=== PATIENT | female | born 1955 | race Caucasian/White ===

== ENCOUNTER → 2017-01-22 | Outpatient (CLI) | payer SELFPAY ==
--- NOTE | 2017-01-22 12:41 | CT ---
CORONARY CALCIUM SCORE CLINICAL INDICATION: Screening. COMPARISON: None PROCEDURE: Gated images of the coronary arteries. Coronary artery calcium scoring was performed. FINDINGS: Coronary calcium scoring - 9 LM: 0 LAD: 8 LCX: 0 RCA: 1 IMPRESSION: 1. Calcium score of 9. This places the patient at approximately the 50th-75th percentile for females of equivalent age. Minimal identifiable plaque. Less than 10% risk of coronary artery disease. Reported By:
== END ==
LOC: RAD 10:47
PROVIDERS: ATTEND Internal Medicine
DX: Z13.6 Encounter for screening for cardiovascular disorders (principal)